=== PATIENT | male | born 1965 | race Caucasian/White ===

== ENCOUNTER 2016-10-24 15:44 | Emergency (ER) | payer OTHER ==
[~2016-10-24] VITALS: Ht 190.5 cm; Wt 94.5 kg
[~2016-10-24 15:44] MED LIST: AMLODIPINE BESYL5 MG PO; ANTI-DIARRHEA2 MG; ANTI-DIARRHEA2 MG PO; ANTIBIOTIC OINT28 GM TP; AVELOX400 MG PO; B-12; BENTYL20 MG PO; CYANOCOBAL1000 MCG/2 IM; DEXILANT60 MG PO; ELAVIL25 MG PO; ENDOCET 5-3251 EACH PO; EPITOL200 MG PO; FISH OIL CONC1 EACH PO; FOLIC ACID1 MG PO; LOPID600 M1 PO; MELOXICAM15 MG PO; METHOTREXA250 MG/10 IV; METOPROLOL TART25 MG PO; MUPIROCIN22 GM TP; NEURONTIN300 MG PO; OMEPRAZOLE40 M1 PO; OXYCODONE-APAP1 EACH PO; PANTOPRAZOLE SO40 MG PO; PEDIA-LAX400 MG PO; PREDNISONE20 MG PO; PRILOSEC20 MG PO; PROTONIX40 MG PO; REMICADE10 MG/ML IV; ROXICET 5-3251 EACH PO; VALIUM5 MG PO; Vicodin,Lortab 5/500 PO; ZANAFLEX2 M1 PO; ZESTRIL,PRINIVI10 MG PO; ZOLOFT25 MG PO
[2016-10-24 16:23] LABS: HEMATOCRIT 41.8 % (38.0-50.0); MCH 30.5 PG (29.0-34.0); MCHC 35.4 G/DL (30.0-36.0); MEAN PLAT.VOLUME 10.1 uM^3 (9.0-12.4); PLATELET COUNT 372 K/uL (156-360); RBC DIS.WIDTH-CV 13.2 % (11.8-14.6); RED BLOOD COUNT 4.86 M/uL (4.00-5.50); WHITE BLOOD COUNT 11.2 K/uL (4.1-10.2)
[2016-10-24 16:33] LABS: CHLORIDE 107 mEq/L (99-109); POTASSIUM 3.5 mEq/L (3.7-5.4); SODIUM 139 mEq/L (136-147)
[2016-10-24 16:35] LABS: GLUCOSE 104 mg/dL (70-99)
[2016-10-24 16:36] LABS: ANION GAP 11 MEQ/L (2-14)
[2016-10-24 16:37] LABS: TOTAL BILIRUBIN 0.6 mg/dL (0.0-1.0)
[2016-10-24 16:38] LABS: ALKALINE PHOSPHATASE 57 IU/L (3-129)
[2016-10-24 16:39] LABS: GFR ESTIMATE (CALCULATED) > 59 mL/min/
[2016-10-24 16:40] LABS: UREA NITROGEN (BUN) 10 mg/dL (9-23)
[2016-10-24 16:42] LABS: LIPASE 20 U/L (1.0-51.0)
[2016-10-24] MEDS ORDERED: METOPROLOL TART25 MG PO (16:45)
[2016-10-24 16:48] LABS: TROP-I INTERPRETATION NEGATIVE; TROPONIN-I < 0.01 ng/mL (0.0-0.30)
[2016-10-24 17:17] VITALS: BP 164/96
== END 2016-10-24 19:11 | disposition left against medical advice (07) ==
LOC: EME 15:44
DX: R10.9 Unspecified abdominal pain (principal)
CPT/HCPCS: 71020; 80053; 81003; 83690; 84484; 85027; 93005; 99281; 99283

== ENCOUNTER 2017-03-30 18:50 | Emergency (ER) | payer OTHER ==
[~2017-03-30] VITALS: Ht 190.5 cm; Wt 94.5 kg
[2017-03-30 19:41] LABS: BASOPHIL COUNT 0.1 K/uL (0-0.1); EOSINOPHIL (%) 0.5 % (0-5); EOSINOPHIL COUNT 0.1 K/uL (0-0.3); HEMATOCRIT 42.7 % (38.0-50.0); IMMATURE GRANULOCYTE (%) 0.7 % (0.0-0.7); IMMATURE GRANULOCYTE COUNT 0.1 K/uL; INSTRUMENT ABS NEUTROPHIL CT 13.7 K/uL; MCH 31.1 PG (29.0-34.0); MCHC 36.3 G/DL (30.0-36.0); MCV 85.6 FL (86-99); MEAN PLAT.VOLUME 10.2 uM^3 (9.0-12.4); MONOCYTE (%) 4.2 % (3-12); MONOCYTE COUNT 0.7 K/uL (0-0.8); NEUTROPHIL COUNT 13.7 K/uL (1.8-6.4); PLATELET COUNT 350 K/uL (156-360); RBC DIS.WIDTH-CV 12.6 % (11.8-14.6); RBC DIS.WIDTH-SD 39.2 % (39-53); RED BLOOD COUNT 4.99 M/uL (4.00-5.50); WHITE BLOOD COUNT 16.6 K/uL (4.1-10.2)
[2017-03-30 19:52] LABS: CHLORIDE 103 mEq/L (99-109); POTASSIUM 3.4 mEq/L (3.7-5.4); SODIUM 137 mEq/L (136-147)
[2017-03-30 19:54] LABS: GLUCOSE 112 mg/dL (70-99)
[2017-03-30 19:55] LABS: ANION GAP 17 MEQ/L (2-14)
[2017-03-30 19:57] LABS: GFR ESTIMATE (CALCULATED) > 59 mL/min/
[2017-03-30 19:58] LABS: UREA NITROGEN (BUN) 12 mg/dL (9-23)
[2017-03-30 21:37] LABS: ADD MIUA? YES; BILIRUBIN NEGATIVE; BLOOD LARGE; COLOR YELLOW ((YELLOW)); GLUCOSE (STRIP) NEGATIVE; KETONES NEGATIVE; LEUKOCYTES NEGATIVE; NITRITE NEGATIVE; PROTEIN (STRIP) 100; UROBILINOGEN 0.2 MG/DL (0.2-1.0)
[2017-03-30] MEDS ORDERED: FLOMAX0.4 MG PO (22:06)
[2017-03-30] MEDS ORDERED: PERCOCET 5/31 TABLET PO (22:06)
[2017-03-30] MEDS ORDERED: ZOFRAN4 MG PO (22:06)
[2017-03-30 22:26] LABS: RED BLOOD CELLS TNTC /HPF (0-5)
[2017-03-30 22:27] LABS: BACTERIA 1+ /HPF; CASTS NONE SEEN /LPF; CRYSTALS NONE SEEN; EPITHELIAL CELLS RARE /HPF; MUCUS NONE SEEN /LPF; UCUL ADDED? YES; WHITE BLOOD CELLS NONE SEEN /HPF (0-5)
[2017-03-30 22:36] VITALS: BP 144/81
== END 2017-03-30 22:37 | disposition home or self-care (01) ==
LOC: EME 18:50
PROVIDERS: Emergency Medicine
DX: N13.2 Hydronephrosis with renal and ureteral calculous obstruction (principal); Z87.442 Personal history of urinary calculi; E78.5 Hyperlipidemia, unspecified; I10 Essential (primary) hypertension; K21.9 Gastro-esophageal reflux disease without esophagitis; K50.90 Crohn's disease, unspecified, without complications; F41.9 Anxiety disorder, unspecified; Z93.2 Ileostomy status; F17.200 Nicotine dependence, unspecified, uncomplicated; Z88.0 Allergy status to penicillin; Z88.8 Allergy status to other drugs, medicaments and biological substances
CPT/HCPCS: 74176; 80048; 81003; 85025; 87086; 99281; 99285; J1885; J2405; J7030

== ENCOUNTER 2017-04-03 05:17 | Emergency (ER) | payer OTHER ==
[~2017-04-03] VITALS: Ht 190.5 cm; Wt 207.0 kg
[~2017-04-03 05:17] MED LIST changes: +FLOMAX0.4 MG PO; +PERCOCET 5/31 TABLET PO; +ZOFRAN4 MG PO
[2017-04-03 06:04] LABS: HEMATOCRIT 40.1 % (38.0-50.0); MCHC 35.9 G/DL (30.0-36.0); MCV 86.4 FL (86-99); MEAN PLAT.VOLUME 9.9 uM^3 (9.0-12.4); PLATELET COUNT 327 K/uL (156-360); RBC DIS.WIDTH-CV 12.7 % (11.8-14.6); RBC DIS.WIDTH-SD 40.1 % (39-53); RED BLOOD COUNT 4.64 M/uL (4.00-5.50); WHITE BLOOD COUNT 15.2 K/uL (4.1-10.2)
[2017-04-03 06:07] LABS: ADD MIUA? YES; BILIRUBIN NEGATIVE; BLOOD MODERATE; COLOR YELLOW ((YELLOW)); GLUCOSE (STRIP) NEGATIVE; KETONES NEGATIVE; LEUKOCYTES NEGATIVE; NITRITE NEGATIVE; PROTEIN (STRIP) 30; SPECIFIC GRAVITY 1.025 (1.000-1.030); UROBILINOGEN 0.2 MG/DL (0.2-1.0)
[2017-04-03 06:12] LABS: CHLORIDE 107 mEq/L (99-109); POTASSIUM 3.7 mEq/L (3.7-5.4); SODIUM 138 mEq/L (136-147)
[2017-04-03 06:14] LABS: GLUCOSE 129 mg/dL (70-99)
[2017-04-03 06:15] LABS: ANION GAP 12 MEQ/L (2-14)
[2017-04-03 06:18] LABS: GFR ESTIMATE (CALCULATED) 49 mL/min/
[2017-04-03 06:19] LABS: UREA NITROGEN (BUN) 12 mg/dL (9-23)
[2017-04-03 06:24] LABS: BACTERIA RARE /HPF; EPITHELIAL CELLS RARE /HPF; MUCUS TRACE /LPF; RED BLOOD CELLS 0-5 /HPF (0-5); UCUL ADDED? NO; WHITE BLOOD CELLS 0-5 /HPF (0-5)
[2017-04-03] MEDS ORDERED: PERCOCET 5/31 TABLET PO (08:05)
[2017-04-03] MEDS ORDERED: TORADOL10 MG PO (08:05)
[2017-04-03 08:25] VITALS: BP 138/80
== END 2017-04-03 08:35 | disposition home or self-care (01) ==
LOC: EME 05:17
DX: N20.0 Calculus of kidney (principal); Z87.442 Personal history of urinary calculi; K50.90 Crohn's disease, unspecified, without complications; E78.5 Hyperlipidemia, unspecified; I10 Essential (primary) hypertension; F17.200 Nicotine dependence, unspecified, uncomplicated; Z93.2 Ileostomy status; K21.9 Gastro-esophageal reflux disease without esophagitis; F41.9 Anxiety disorder, unspecified; Z88.0 Allergy status to penicillin; Z88.8 Allergy status to other drugs, medicaments and biological substances
CPT/HCPCS: 80048; 81003; 85027; 99281; 99285; J1885; J2270; J2405; J7030